=== PATIENT | female | born 1950 | race Caucasian/White ===

== ENCOUNTER 2018-04-17 10:44 | Emergency (ER) | payer MEDICARE, OTHER ==
[~2018-04-17] VITALS: Ht 162.6 cm; Wt 76.0 kg
[2018-04-17] MEDS ORDERED: IBUPROFEN600 MG PO (10:54)
[2018-04-17] MEDS ORDERED: LEVOTHYROXIN125 MCG PO (10:55)
[2018-04-17] MEDS ORDERED: GELNIQUE TD (10:55)
[2018-04-17] MEDS ORDERED: METFORMIN850 MG PO (10:56)
[2018-04-17] MEDS ORDERED: TORADOL PO (12:13)
[2018-04-17 12:34] VITALS: BP 107/67
== END 2018-04-17 12:31 | disposition home or self-care (01) ==
LOC: ED 10:44
DX: S80.01XA Contusion of right knee, initial encounter (principal); W01.0XXA Fall on same level from slipping, tripping and stumbling without subsequent striking against object, initial encounter; Y93.89 Activity, other specified; Y92.410 Unspecified street and highway as the place of occurrence of the external cause

== ENCOUNTER → 2018-04-25 | Outpatient (REF) | payer MEDICARE, OTHER ==
[~2018-04-25] MED LIST: GELNIQUE TD; IBUPROFEN600 MG PO; LEVOTHYROXIN125 MCG PO; METFORMIN850 MG PO; TORADOL PO
== END | disposition home or self-care (01) ==
LOC: MRI 12:25
PROVIDERS: ATTEND Orthopaedic Surgery
DX: R10.2 Pelvic and perineal pain (principal)